=== PATIENT | male | born 1990 | race Caucasian/White ===

== ENCOUNTER 2018-08-04 15:18 | Emergency (ER) | payer BC ==
[~2018-08-04] VITALS: Ht 182.9 cm; Wt 86.3 kg
[2018-08-04 15:40] VITALS: BP 172/93
[2018-08-04] MEDS ORDERED: HYDR25CA PO (16:57)
== END 2018-08-04 17:36 | disposition home or self-care (01) ==
LOC: ER 15:19
DX: F41.0 Panic disorder [episodic paroxysmal anxiety] (principal); Z88.0 Allergy status to penicillin
CPT/HCPCS: 99283